=== PATIENT | male | born 1985 | race Caucasian/White ===

== ENCOUNTER 2016-12-19 18:06 | Emergency (ER) | payer OTHER ==
[~2016-12-19] VITALS: Ht 182.9 cm; Wt 76.0 kg
[~2016-12-19 18:06] MED LIST: CIPR500T87 PO; CYCL-259 PO; HYDR1TAB12 PO; IBUP-1222 PO; LIDO5CRE10 TP; METR500T PO
[2016-12-19 18:09] VITALS: BP 112/66
== END 2016-12-19 20:55 | disposition home or self-care (01) ==
LOC: ED 20:50
DX: S82.65XA Nondisplaced fracture of lateral malleolus of left fibula, initial encounter for closed fracture (principal); X50.1XXA Overexertion from prolonged static or awkward postures, initial encounter; Y93.01 Activity, walking, marching and hiking; Y92.89 Other specified places as the place of occurrence of the external cause; Y99.8 Other external cause status
CPT/HCPCS: 29515